=== PATIENT | female | born 1990 | race Caucasian/White ===

== ENCOUNTER 2025-08-10 17:07 | Emergency (ER) | payer BC, SELFPAY ==
--- NOTE | ~2025-08-10 | XR_ITS ---
EXAMINATION: XR chest 2V, 08/10/2025 17:20 WIG STYLIST HISTORY: cp COMPARISON: No comparisons available. Technique: 2 views obtained. Findings: The lungs are clear, no effusion. No pneumothorax. Heart is normal size. Mediastinal and hilar contours are within normal limits. Bony thorax no acute abnormality. Impression: No acute cardiopulmonary abnormality. Reviewed, dictated and finalized at location P. STYLIST Impression: No acute cardiopulmonary abnormality.
--- NOTE | 2025-08-10 17:11 | ECG_ITS ---
Test Date: 2025-08-10 17:30:53 Measurements Intervals [place] Rate: 82 P: 17 FL: 142 QRS: 21 QRSD: 81 T: 61 QT: 369 QTc: 431 Interpretive Statements SINUS RHYTHM WITH SINUS ARRHYTHMIA LOW QRS VOLTAGE IN PRECORDIAL LEADS POSSIBLE RIGHT VENTRICULAR CONDUCTION DELAY BORDERLINE R WAVE PROGRESSION, ANTERIOR LEADS BASELINE ARTIFACT- I, II, III, AVR, AVL, AVF BORDERLINE ECG No previous ECG available for comparison Electronically Signed On 08-10-2025 20:51:53 RHEUMATOLOGY SPECIALIST by Marlon Sinclair D.O.
[2025-08-10 17:26] VITALS: BP 108/64; PULSE 77; RESP 16; TEMP 36.5; O2SAT 100
[2025-08-10 18:00] LABS: Hematocrit 40.0 % (37.0-47.0); Hemoglobin 13.8 g/dL (12.0-15.0); Immature Granulocyte Percent A 0.3 % (0-0.5); Lymphocytes Absolute Auto 3.10 K/mm3 (0.9-3.2); Mean Corpuscular HGB Conc 34.5 g/dl (32-36); Mean Corpuscular Hemoglobin 32.7 pg (26-34); Mean Corpuscular Volume 94.8 fl (80-100); Nucleated Red Blood Cells Absolute Auto 0.000 K/mm3 (0.0-0.012); Nucleated Red Blood Cells Perc 0.0 % (0.0-0.2); Platelet Count Result 285 k/mm3 (150-375); Red Blood Count 4.22 M/mm3 (4.2-5.4); White Blood Count 9.0 K/mm3 (4.5-10.0)
[2025-08-10 18:12] LABS: Alanine Aminotransferase 12 U/L (6-35); Albumin Level 4.1 g/dL (3.5-5.1); Alkaline Phosphatase 89 U/L (38-126); Anion Gap 5 mmol/L (4-12); Aspartate Amino Transferase 33 U/L (14-36); Bilirubin,Total 0.3 mg/dL (0.2-1.3); Blood Urea Nitrogen 15 mg/dL (7-17); Calcium 9.0 mg/dL (8.4-10.2); Carbon Dioxide 22 mmol/L (22-30); Chloride 109 mmol/L (98-107); Estimated CRCL calculation 86 ml/min; Estimated Glomerular Filt Rate > 60; Glucose 99 mg/dL (65-110); Lipase 119 U/L (23-300); Potassium 4.1 mmol/L (3.4-5.0); Sodium 136 mmol/L (137-145); Total Protein 6.9 g/dL (6.3-8.2)
[2025-08-10 18:21] LABS: INR 0.9; Partial Thromboplastin Time 29.8 Seconds (22.3-36.8); Prothrombin Time 12.2 Seconds (11.1-14.7)
[2025-08-10 18:24] LABS: Troponin I < 0.012 ng/mL (0.000-0.034)
--- NOTE | 2025-08-10 18:31 | ED_ITS ---
HPI - Chest Pain General Chief Complaint: Chest Pain Stated Complaint: CP since yest. Time Seen by Provider: 08/10/25 18:21 Source: patient and EMS Mode of arrival: EMS Limitations: no limitations History of Present Illness HPI narrative: This is a 34-year-old female who presents to the ED for chest pain. Patient states that for the past month or so, she has been having intermittent left- sided chest pain that radiates to the right side. She states that it got worse yesterday and today. She took aspirin for this before calling EMS. Pain has slightly improved since then. She notes that about a month ago, she was told that she had a ?heart attack? at which point her heart ?catapulted out of her chest?. When asked further about this, she was not admitted to the hospital for this and has not been on any medications. She is a current daily smoker about a pack a day. Denies regular alcohol use. Denies illicit substance abuse. Related Data Allergies Allergy/AdvReac Type Severity Reaction Status Date / Time No Known Allergies Allergy Verified 08/10/25 17:12 Review of Systems 2 Review of Systems: Gen.: Denies fevers or chills Eyes: Denies eye pain or visual change ENT: Denies congestion Respiratory: Denies shortness of breath or cough CV: As per HPI GI: Denies abdominal pain nausea, emesis or diarrhea denies burning, urgency, frequency or hematuria Musculoskeletal: Denies back pain or muscle pain Neuro: Denies numbness, tingling, weakness or focal weakness Skin: Denies rash Except as documented, all other systems reviewed and negative Exam 2 Narrative: APPEARANCE: No acute distress, nontoxic, resting in bed EYES: EOMI HEENT: Normocephalic, atraumatic, OMM RESPIRATORY: No respiratory distress Clear to auscultation bilaterally with no rhonchi wheezing or rales. CARDIOVASCULAR: Regular rate and rhythm without murmurs rubs or gallops. Mild tenderness palpation over the left lower anterior chest wall. ABDOMINAL: Soft, nontender, nondistended, no rebound or guarding MUSCULOSKELETAl: Moves all extremities. No clubbing, cyanosis or edema. NEURO: Awake and alert. Following commands, speech normal, no focal deficits SKIN:: Warm, dry. No rashes lesions or abrasions PSYCHIATRIC: Normal affect/mood, Course Vital Signs Vital signs: Vital Signs Temperature 97.7 F 08/10/25 17:26 Pulse Rate 77 08/10/25 17:26 Respiratory Rate 16 08/10/25 17:26 Blood Pressure 108/64 08/10/25 17:26 Pulse Oximetry 100 08/10/25 17:26 Temperature 97.7 F 08/10/25 17:26 Pulse Rate 79 08/10/25 19:55 Respiratory Rate 19 08/10/25 19:55 Blood Pressure 100/65 08/10/25 19:55 Pulse Oximetry 99 08/10/25 19:55 Oxygen Delivery Room Air 08/10/25 18:42 MDM MDM Narrative Medical decision making narrative: 34-year-old female Presenting for chest pain. On initial evaluation patient was in no acute distress afebrile, hemodynamic stable. Differentials include but are not limited to: ACS, PE, PNA, bronchitis, costochondritis, pleurisy, viral syndrome, GERD Notable exam findings: Tenderness palpation to the left anterior chest wall. Heart and lungs clear. I personally reviewed the patient's lab result. Notable lab findings: CBC and CMP were without significant abnormalities. Troponin negative. Repeat troponin negative. I personally reviewed the patient's images and interpret as follows: Chest x- ray: Normal cardiac silhouette, no consolidations, no pleural effusions, no pulmonary vascular congestion I personally reviewed the patient's EKGs: Normal sinus rhythm, normal axis, normal intervals, no acute ST or T-wave changes Patient's EKGs and labs are without significant high risk changes. Cardiac risk factors reviewed. Patient is felt likely low risk for ACS and reasonable for further risk stratification testing as an outpatient. Pain was not sudden or maximal in onset without tearing or ripping quality. No other signs of symptoms suggest aortic dissection. A low-risk Wells criteria is noted, PE is felt to be unlikely. No pneumonia seen on evaluation today. Patient is felt to be a reasonable candidate for continued evaluation as an outpatient. Patient was deemed appropriate for discharge at this time. Patient was given a prescription for Lidoderm. Patient was advised follow-up with their PCP in the next week for re-evaluation. Patient was agreeable to this plan. Given strict return precautions. Differential Diagnosis Differential Diagnosis: ACS, PE, PNA, bronchitis, costochondritis, pleurisy, viral syndrome, GERD Lab Data 08/10/25 17:50 08/10/25 17:50 Labs: Lab Results 08/10/25 08/10/25 Range/Units 17:50 20:19 WBC 9.0 (4.5-10.0) K/mm3 RBC 4.22 (4.2-5.4) M/mm3 Hgb 13.8 (12.0-15.0) g/dL Hct 40.0 (37.0-47.0) % MCV 94.8 (80-100) fl MCH 32.7 (26-34) pg MCHC 34.5 (32-36) g/dl RDW 12.6 (11.5-14.5) % Plt Count 285 (150-375) k/mm3 MPV 11.6 H (7.4-10.4) fl Immature Gran % (Auto) 0.3 (0-0.5) % Neut % (Auto) 56.8 (45.5-73.1) % Lymph % (Auto) 34.3 (18.3-44.2) % [place] % (Auto) 7.0 (2.6-8.5) % Eos % (Auto) 1.3 (0-4.4) % Baso % (Auto) 0.3 (0.2-1.2) % Lymph # (Auto) 3.10 (0.9-3.2) K/mm3 [place] # (Auto) 0.6 (0.1-0.6) K/mm3 Eos # (Auto) 0.1 (0-0.3) K/mm3 Baso # (Auto) 0.0 (0.0-0.1) K/mm3 Abs Immat Gran (auto) 0.03 (0.00-0.031) K/mm3 Absolute Neuts (auto) 5.1 (1.3-6.7) K/mm3 Absolute Nucleated RBC 0.000 (0.0-0.012) K/mm3 Nucleated RBC % 0.0 (0.0-0.2) % PT 12.2 (11.1-14.7) Seconds INR 0.9 APTT 29.8 (22.3-36.8) Seconds Sodium 136 L (137-145) mmol/L Potassium 4.1 (3.4-5.0) mmol/L Chloride 109 H (98-107) mmol/L Carbon Dioxide 22 (22-30) mmol/L Anion Gap 5 (4-12) mmol/L BUN 15 (7-17) mg/dL Creatinine 0.72 (0.7-1.0) mg/dL Estim Creat Clear Calc 86 ml/min Estimated GFR > 60 (59 - ) Glucose 99 (65-110) mg/dL Calcium 9.0 (8.4-10.2) mg/dL Total Bilirubin 0.3 (0.2-1.3) mg/dL AST 33 (14-36) U/L ALT 12 (6-35) U/L Alkaline Phosphatase 89 (38-126) U/L Troponin I < 0.012 < 0.012 (0.000-0.034) ng/mL Total Protein 6.9 (6.3-8.2) g/dL Albumin 4.1 (3.5-5.1) g/dL Lipase 119 (23-300) U/L Imaging Data Radiologist's impression: ITS Impressions Chest X-Ray 08/10/25 17:29 Impression: No acute cardiopulmonary abnormality. Discharge Plan Discharge Clinical Impression: Chest pain Qualifiers: Chest pain type: intercostal pain Qualified Code(s): R07.82 - Intercostal pain Patient Disposition: Home Condition: Stable Instructions: Antibiotic Form, Chest Wall Pain (ED) Additional Instructions: Lab work and chest x-ray and EKG were all reassuring and not indicative of heart damage at this time. You likely have pleurisy causing your symptoms. You may take Tylenol and ibuprofen for the pain. You were given a prescription for Lidoderm, take this as prescribed. You were given a referral to Dr. Lopez, Family Medicine to establish care. Return to the ED for any new or worsening symptoms. Patient Language: Serbian Prescriptions: New lidocaine [Lidoderm] 5 % adhesive patch,medicated 1 patch topical DAILY Qty: 15 0RF Rx Instructions: leave on most painful area for up to 12 hrs Follow-up/Referrals: PHYSICIAN NOT ON STAFF,NONSTAFF [Non-Staff] Bharath Lopez MD [Physician, Family Practice]
[2025-08-10 18:41] VITALS: BP 101/71; PULSE 72; RESP 17; O2SAT 100
[2025-08-10] MEDS: LIDOCAINE 5% PATCH 1 PATCH TRANSDERM (19:09)
[2025-08-10] MEDS: CYCLOBENZAPRINE HCL 10 MG TABLET PO (19:09)
[2025-08-10 19:55] VITALS: BP 100/65; PULSE 79; RESP 19; O2SAT 99
[2025-08-10 20:47] LABS: Troponin I < 0.012 ng/mL (0.000-0.034)
[2025-08-10 21:16] VITALS: BP 99/67; PULSE 76; RESP 18; TEMP 36.6; O2SAT 98
== END 2025-08-10 21:19 | disposition home or self-care (01) ==
PROVIDERS: Emergency Medicine; Emergency Provider Student in an Organized Health Care Education/Training Program
DX: R07.82 Intercostal pain (principal); F17.210 Nicotine dependence, cigarettes, uncomplicated
CPT/HCPCS: 36415; 71046; 80053; 83690; 84484; 85025; 85610; 85730; 93005; 99284; A9270